=== PATIENT | male | born 1945 | race Caucasian/White ===

== ENCOUNTER 2018-10-20 01:26 | Inpatient (IN) | payer MEDICARE, BC ==
[~2018-10-20] VITALS: Ht 172.7 cm; Wt 49.0 kg
[2018-10-20] MEDS ORDERED: ARIP5TAB20 PO (01:35)
[2018-10-20] MEDS ORDERED: DULO30CA2 PO (01:35)
[2018-10-20] MEDS ORDERED: TAMS-3 PO (01:35)
[2018-10-20] MEDS ORDERED: BACI1CAP4 PO (01:36)
[2018-10-20] MEDS ORDERED: VIT1CAPS44 PO (01:36)
[2018-10-20] MEDS ORDERED: ASPI-1152 PO (01:37)
[2018-10-20] MEDS ORDERED: PRAV40TA PO (01:39)
[2018-10-20] MEDS ORDERED: CALC-168 PO (01:39)
[2018-10-20] MEDS ORDERED: VITA100C5 PO (01:40)
[2018-10-20] MEDS ORDERED: TEMA30CA PO (01:40)
--- NOTE | 2018-10-20 01:43 | NUR ---
Pt. admitted to MHU, under care of Dr. Li/Calista Rodriguez List completed
--- NOTE | 2018-10-20 01:46 | NUR ---
Pt. admitted to MHU , under care of Dr. Li/ Calista ACCOUNTING GENERALIST. Report given to Nikki VALLEJO Belongs List completed
[2018-10-20] MEDS ORDERED: MAGNESIUM HYDROXIDE 30 ML LIQUID UDC PO PRN (02:00)
[2018-10-20] MEDS ORDERED: MAG HYDROX/AL HYDROX/SIMETH 30 ML LIQUID UDC PO PRN (02:00)
--- NOTE | 2018-10-20 02:30 | NUR ---
78 y.o. male brought to MHU via gurney, accompanied by 2 hospital superintendent, Pt medically cleared at [facility]. Pt has a dx of Major Depression and is under the care of Dr Li and DOLORES Garner. Pt on a 5150 for DTS. According to the Hold, Pt took 12 tabs on Klonopin 0.5mg in a suicide attempt. Pt stated he is not remorseful and regrets he lived. Pt admits and agrees with a Pt given Patient Rights Handbook and Advisement. Upon face to face evaluation, Pt A+Ox2 to self and place, stated the date was September. Pt states she is here "because they said I was wandering into other people's rooms." Pt attempts to minimize circumstances regarding her admission, and initially denied going into other resident's room, but later admitted, "yes I did go into someone's room, but he's my friend I was checking on him." Then Pt stated, "I did it because I get bored." Pt is a poor historian, and denies ever being in a psychiatric facility and denies any mental health problem, stating "I'm not crazy. Do you think I'm crazy?" Per Pt's daughter Radha, Pt had had multiple psych hospitalizations and has a long history of bipolar d/o and schizophrenia. Pt is guarded with personal information and easily irritable. Pt is needy and demanding with snacks and reading material, angry when limits are set. Affect is elevated, speech is pressured, mood is depressed, anxious, and restless. t is attention-seeking and hyperverbal. Ativan 0.5mg administered with moderate effect. Circumstantial and tangential in thought process. Somewhat forgetful and disorganized, repeats the same questions frequently. Pt denies SI/HI, but stated, "I can't wait to be with my son" and became tearful. Verbally contracts for safety. Denies AH/VH. Appearance is disheveled and unkempt, shower given. Skin assessment completed, skin c/d/i with small bruises noted to (B) posterior hands. Dr Cisneros and Dr Tabor notified of admission, orders received, meds reconciled. Noted medical h/o dementia, bipolar d/o, schizophrenia, OCD, HTN, HLD, Parkinson's, glaucoma, arthritis, and hearing loss, NKA. Belongings inventoried and placed in Pt room. Cooperative with admission process, all paperwork signed. Pt's friend Kalani and daughter Radha notified of admission. BP elevated on admission, Dr Tabor notified, no new orders. All other VS stable, denies pain, in no apparent physical distress. Pt educated on unit rules and expectations and on restraint criteria/policy. Pt oriented to the unit, the phone, her room, and bathroom, verbalized understanding. Addendum: 10/20/18 at 0642 by IRAJ MERRITT RN Disregard previous note
--- NOTE | 2018-10-20 05:00 | NUR ---
See admission note in [facility] Admission Packet
[2018-10-20 05:56] VITALS: BP 151/97
[2018-10-20 07:30] VITALS: BP 132/79
--- NOTE | 2018-10-20 12:32 | NUR ---
Initial Discharge Instructions: Patient currently resides at home with his and son [[address], [place] [address]; [phone]]. Per pt, he would like to return home when ready for discharge. SW will speak with pt's , Vandana ([phone]). DAVID will continue to collaborate with pt, family, and MD regarding most appropriate discharge plans for this patient. SW will form a safe and proper discharge plan.
[2018-10-20 15:24] VITALS: BP 118/75
[2018-10-20] MEDS: VITAMIN E 400 UNITS CAPSULE PO SCH (16:39)
[2018-10-20] MEDS: BETA CAROTENE/VIT C & E/MIN TABLET PO SCH (16:52)
[2018-10-20] MEDS: ATORVASTATIN 10 MG TABLET PO SCH (20:04)
[2018-10-20] MEDS: CALCIUM CARB/VITAMIN D 500MG-200UNITS TABLET PO SCH (20:04)
[2018-10-20] MEDS: CULTURELLE CAPSULE PO SCH (20:04)
[2018-10-20 20:30] VITALS: BP 124/78
[2018-10-20] MEDS ORDERED: ATORVASTATIN 40 MG TABLET PO SCH (21:00)
[2018-10-20] MEDS: MIRTAZAPINE 15 MG TABLET PO SCH (22:41)
--- NOTE | 2018-10-21 04:58 | NUR ---
Received Pt in bed, A+Ox3, calm and pleasant on approach. Noted to be isolative, withdrawn, and seclusive to his room. Pt now denies SI, but appears unreliable due to blunted affect, self-imposed seclusion, and inability to sleep. Presents with thought blocking and is guarded in thought process. Pt encouraged to participate in the milieu and participate in group activities. Dr Li started on Remeron 15mg HS, Pt educated on indications and reportable s/e. Appears in no acute distress, VS stable, denies any acute pain, will continue to monitor.
[2018-10-21 07:30] VITALS: BP 126/85
[2018-10-21] MEDS: ASPIRIN EC 81 MG TABLET.DR PO SCH (08:31)
[2018-10-21] MEDS: CALCIUM CARB/VITAMIN D 500MG-200UNITS TABLET PO SCH ×2 (08:31→20:22)
[2018-10-21] MEDS: CULTURELLE CAPSULE PO SCH ×2 (08:31→20:22)
[2018-10-21] MEDS: BETA CAROTENE/VIT C & E/MIN TABLET PO SCH (08:31)
[2018-10-21] MEDS: TAMSULOSIN HCL 0.4 MG CAP.SR.24H PO SCH (08:31)
[2018-10-21] MEDS: VITAMIN E 400 UNITS CAPSULE PO SCH (08:32)
[2018-10-21 16:00] VITALS: BP 112/72
--- NOTE | 2018-10-21 19:45 | NUR ---
RECEIVED PATIENT IN HIS ROOM IN BED, HE IS NOTED AWAKE A/O X 2. HE IS ABLE TO AMBULATE WITH STEADY GAIT AND ABLE TO MAKE HIS NEEDS KNOWN. PATIENT NOTED WITHDRAWN, ISOLATIVE, SAD FACIAL EXPRESSION; HOWEVER, UPON INTERVIEW, HE DENIED SI, DENIES ANY THOUGHTS OF HARMING SELF. HE STATED, "I KNOW I TOOK BUNCH OF PILLS BUT NOW I FEEL THAT I HAVE HOPE. I FEEL BETTER AND BETTER AND MY DEPRESSION IS BETTER." PATIENT IS ABLE TO CFS. HE WAS REASSURED FOR HIS SAFETY. WILL CONTINUE TO MONITOR.
[2018-10-21 19:57] VITALS: BP 138/83
[2018-10-21] MEDS: MIRTAZAPINE 15 MG TABLET PO SCH (20:20)
[2018-10-21] MEDS: ATORVASTATIN 10 MG TABLET PO SCH (20:20)
[2018-10-22 08:00] VITALS: BP 110/68
[2018-10-22] MEDS: CALCIUM CARB/VITAMIN D 500MG-200UNITS TABLET PO SCH ×2 (08:33→20:04)
[2018-10-22] MEDS: CULTURELLE CAPSULE PO SCH ×2 (08:33→20:03)
[2018-10-22] MEDS: ASPIRIN EC 81 MG TABLET.DR PO SCH (08:33)
[2018-10-22] MEDS: VITAMIN E 400 UNITS CAPSULE PO SCH (08:33)
[2018-10-22] MEDS: TAMSULOSIN HCL 0.4 MG CAP.SR.24H PO SCH (08:33)
[2018-10-22] MEDS: BETA CAROTENE/VIT C & E/MIN TABLET PO SCH (08:34)
[2018-10-22 16:42] VITALS: BP 147/90
[2018-10-22] MEDS: ATORVASTATIN 10 MG TABLET PO SCH (20:03)
[2018-10-22] MEDS: MIRTAZAPINE 15 MG TABLET PO SCH (20:03)
[2018-10-22 20:18] VITALS: BP 119/65
[2018-10-23] MEDS ORDERED: LORAZEPAM 1 MG TABLET PO PRN (01:15)
[2018-10-23 07:30] VITALS: BP 139/87
[2018-10-23] MEDS: TAMSULOSIN HCL 0.4 MG CAP.SR.24H PO SCH (08:15)
[2018-10-23] MEDS: CULTURELLE CAPSULE PO SCH ×2 (08:15→20:51)
[2018-10-23] MEDS: VITAMIN E 400 UNITS CAPSULE PO SCH (08:15)
[2018-10-23] MEDS: ASPIRIN EC 81 MG TABLET.DR PO SCH (08:15)
[2018-10-23] MEDS: CALCIUM CARB/VITAMIN D 500MG-200UNITS TABLET PO SCH ×2 (08:15→20:51)
[2018-10-23] MEDS: BETA CAROTENE/VIT C & E/MIN TABLET PO SCH (08:15)
--- NOTE | 2018-10-23 11:28 | NUR ---
Firearms Report: SW completed and submitted [employer] Firearms Report for 5150 DTS certification.
[2018-10-23 15:36] VITALS: BP 122/76
[2018-10-23 20:23] VITALS: BP 125/88
[2018-10-23] MEDS: MIRTAZAPINE 15 MG TABLET PO SCH (20:51)
[2018-10-23] MEDS: ATORVASTATIN 10 MG TABLET PO SCH (20:51)
[2018-10-23] MEDS: TEMAZEPAM 7.5 MG CAPSULE PO PRN (21:51)
[2018-10-24 07:30] VITALS: BP 126/83
[2018-10-24] MEDS: ASPIRIN EC 81 MG TABLET.DR PO SCH (09:38)
[2018-10-24] MEDS: CALCIUM CARB/VITAMIN D 500MG-200UNITS TABLET PO SCH ×2 (09:38→20:54)
[2018-10-24] MEDS: TAMSULOSIN HCL 0.4 MG CAP.SR.24H PO SCH (09:38)
[2018-10-24] MEDS: VITAMIN E 400 UNITS CAPSULE PO SCH (09:38)
[2018-10-24] MEDS: BETA CAROTENE/VIT C & E/MIN TABLET PO SCH (09:38)
[2018-10-24] MEDS: CULTURELLE CAPSULE PO SCH ×2 (09:38→21:00)
--- NOTE | 2018-10-24 14:39 | NUR ---
Vegetable Vendor Discharge Planning: SW called and spoke to pt's , Vandana ([phone]) to discuss pt's prognosis and discharge planning. SW provided opportunity for pt's to express concerns and ventilate feelings. Pt's expressed concern about patient returning home upon discharge, as she has medical issues of her own from which she is recovering. SW explored options of pt returning home w/Home Health and caregiver vs SNF placement. Pt's reported that she would rather have patient placed in a SNF at this time to ensure safety for both the patient and herself. Pt's was agreeable with local SNF placement. Pt's reported that she has DPOA and will bring it with her tonight when she visits the patient. SW will begin SNF placement process and will continue to collaborate with treatment team to ensure a safe and proper discharge for the patient.
[2018-10-24 16:24] VITALS: BP 122/80
[2018-10-24 20:00] VITALS: BP 144/82
[2018-10-24] MEDS: CLONAZEPAM 0.5 MG TABLET PO SCH (20:53)
[2018-10-24] MEDS: ATORVASTATIN 10 MG TABLET PO SCH (20:54)
[2018-10-24] MEDS: MIRTAZAPINE 15 MG TABLET PO SCH (21:01)
[2018-10-24] MEDS: TEMAZEPAM 7.5 MG CAPSULE PO PRN (22:19)
[2018-10-25 07:30] VITALS: BP 113/78
[2018-10-25] MEDS: VITAMIN E 400 UNITS CAPSULE PO SCH (08:28)
[2018-10-25] MEDS: CULTURELLE CAPSULE PO SCH ×2 (08:28→20:06)
[2018-10-25] MEDS: CALCIUM CARB/VITAMIN D 500MG-200UNITS TABLET PO SCH ×2 (08:28→20:06)
[2018-10-25] MEDS: TAMSULOSIN HCL 0.4 MG CAP.SR.24H PO SCH (08:29)
[2018-10-25] MEDS: ASPIRIN EC 81 MG TABLET.DR PO SCH (08:29)
[2018-10-25] MEDS: BETA CAROTENE/VIT C & E/MIN TABLET PO SCH (08:29)
[2018-10-25] MEDS: CLONAZEPAM 0.5 MG TABLET PO SCH ×2 (08:31→20:06)
--- NOTE | 2018-10-25 13:06 | NUR ---
Patient fmily member, Amanda Beck, would like to be the poitn of contact while the other family members will be out of town. Sanjuana number is ([phone]). Amanda can be contacted if there is anything needed or any changes to the plan for Mr. Beck.
[2018-10-25] MEDS: ACETAMINOPHEN 325 MG TABLET PO PRN (14:24)
--- NOTE | 2018-10-25 15:43 | NUR ---
PROCESS GROUP NOTE: Patients were asked to discuss their thoughts on what knowledge or "life lessons" they would pass on to a younger generation. Subjective: "..." Objective: harness worker arrived at patient bedside to invite patient to group. Patient was asleep and unable to be woken up. Assessment: Patient appeared to be sleeping calmly. harness worker did not disturb. Plan: harness worker will continue to encourage group attendance as scheduled. harness worker will continue to provide encouragement and support during MHU admission
[2018-10-25 16:00] VITALS: BP 135/72
--- NOTE | 2018-10-25 18:12 | NUR ---
spent majority of the day in his bed in his room. Patient is compliant with medical care and treatment. patient denies any suicidal ideation. Patient denies hallucination auditory and visual. Patient is able to verbalize needs and needs have been met. Patient consumed most of his meals today. Patient tends to keep to himself during the evening activities room. patient prefers to eat in the room alone. Will continue to monitor the patient closely and will endorse plan of care to overnight caregiver.
[2018-10-25 19:56] VITALS: BP 135/72
[2018-10-25] MEDS: MIRTAZAPINE 15 MG TABLET PO SCH (20:06)
[2018-10-25] MEDS: ATORVASTATIN 10 MG TABLET PO SCH (20:06)
[2018-10-25] MEDS: TEMAZEPAM 7.5 MG CAPSULE PO PRN (21:39)
[2018-10-26 07:30] VITALS: BP 108/75
[2018-10-26] MEDS: CLONAZEPAM 0.5 MG TABLET PO SCH ×2 (08:37→21:13)
[2018-10-26] MEDS: ASPIRIN EC 81 MG TABLET.DR PO SCH (08:37)
[2018-10-26] MEDS: TAMSULOSIN HCL 0.4 MG CAP.SR.24H PO SCH (08:37)
[2018-10-26] MEDS: BETA CAROTENE/VIT C & E/MIN TABLET PO SCH (08:38)
[2018-10-26] MEDS: VITAMIN E 400 UNITS CAPSULE PO SCH (08:38)
[2018-10-26] MEDS: CALCIUM CARB/VITAMIN D 500MG-200UNITS TABLET PO SCH ×2 (08:38→21:15)
[2018-10-26] MEDS: CULTURELLE CAPSULE PO SCH ×2 (08:38→21:14)
[2018-10-26 16:00] VITALS: BP 134/79
[2018-10-26] MEDS: MIRTAZAPINE 15 MG TABLET PO SCH (21:15)
[2018-10-26 21:18] VITALS: BP 146/86
[2018-10-26] MEDS: ATORVASTATIN 10 MG TABLET PO SCH (21:20)
[2018-10-26] MEDS: ACETAMINOPHEN 325 MG TABLET PO PRN (21:34)
--- NOTE | 2018-10-26 22:26 | NUR ---
A/O X 3 to self, calm and pleasant upon approach, denies SI/HI/AH/VH, reports feeling better but still depressed, withdrawn, isolative to self in room. Interacts with staff, medication compliant, prn for low grade fever administered with effective outcome no aggressive or violent behaviors noted. Emphasized safety, encouraged pt to call for assistance whenever needed to prevent any injuries while in the hospital.
[2018-10-26] MEDS: TEMAZEPAM 7.5 MG CAPSULE PO PRN (22:36)
[2018-10-27 07:30] VITALS: BP 123/84
[2018-10-27] MEDS: ASPIRIN EC 81 MG TABLET.DR PO SCH (08:35)
[2018-10-27] MEDS: CLONAZEPAM 0.5 MG TABLET PO SCH ×2 (08:35→20:08)
[2018-10-27] MEDS: TAMSULOSIN HCL 0.4 MG CAP.SR.24H PO SCH (08:35)
[2018-10-27] MEDS: BETA CAROTENE/VIT C & E/MIN TABLET PO SCH (08:36)
[2018-10-27] MEDS: CALCIUM CARB/VITAMIN D 500MG-200UNITS TABLET PO SCH ×2 (08:37→20:08)
[2018-10-27] MEDS: CULTURELLE CAPSULE PO SCH ×2 (08:37→20:05)
[2018-10-27] MEDS: VITAMIN E 400 UNITS CAPSULE PO SCH (08:51)
--- NOTE | 2018-10-27 11:24 | NUR ---
Job Press Feeder Discharge Planning: DAVID consulted with Dr. Li about SNF placement, and Dr. Li recommended SNF inquiry be sent to [facility] [[address], [place] [address]; [phone]; Attn: Georgina]. DAVID faxed inquiry and is awaiting response from the facility. DAVID will continue to follow-up.
[2018-10-27 16:00] VITALS: BP 132/84
--- NOTE | 2018-10-27 20:00 | NUR ---
RECEIVED PATIENT IN HIS ROOM IN BED. HE IS NOTED AWAKE A/O X 3. ABLE TO AMBULATE WITH STEADY GAIT AND ABLE TO MAKE HIS NEEDS KNOWN. PATIENT NOTED WITH LOW MOOD, WITHDRAWN, ISOLATIVE, BLUNTED AFFECT, FAIR INSIGHT AND JUDGMENT. UPON INTERVIEW PATIENT STATED, "I WANT TO TALK TO DR HADDAD BECAUSE I AM STILL FEELING DEPRESSED, I WANT HIM TO INCREASED MY MEDICATION". PATIENT WAS REASSURED THAT DR HADDAD WILL BE NOTIFY OF PATIENT'S FEELING. PATIENT IS ABLE TO CFS. ENCOURAGE TO VERBALIZED FEELINGS. HE WAS REASSURED FOR HIS SAFETY. WILL CONTINUE TO MONITOR.
[2018-10-27] MEDS: MIRTAZAPINE 15 MG TABLET PO SCH (20:05)
[2018-10-27] MEDS: ATORVASTATIN 10 MG TABLET PO SCH (20:05)
[2018-10-27] MEDS ORDERED: MIRTAZAPINE 15 MG TABLET PO ONE (21:45)
[2018-10-27] MEDS: TEMAZEPAM 7.5 MG CAPSULE PO PRN (22:48)
[2018-10-28 08:00] VITALS: BP 131/82
[2018-10-28] MEDS: CLONAZEPAM 0.5 MG TABLET PO SCH ×2 (08:36→20:29)
[2018-10-28] MEDS: ASPIRIN EC 81 MG TABLET.DR PO SCH (08:38)
[2018-10-28] MEDS: TAMSULOSIN HCL 0.4 MG CAP.SR.24H PO SCH (08:38)
[2018-10-28] MEDS: CULTURELLE CAPSULE PO SCH ×2 (08:39→20:29)
[2018-10-28] MEDS: CALCIUM CARB/VITAMIN D 500MG-200UNITS TABLET PO SCH ×2 (08:39→20:29)
[2018-10-28] MEDS: BETA CAROTENE/VIT C & E/MIN TABLET PO SCH (08:40)
[2018-10-28] MEDS: VITAMIN E 400 UNITS CAPSULE PO SCH (08:40)
[2018-10-28 16:42] VITALS: BP 123/84
--- NOTE | 2018-10-28 19:40 | NUR ---
RECEIVED PATIENT IN HIS ROOM IN BED. HE IS NOTED AWAKE A/O X 3. ABLE TO AMBULATE WITH STEADY GAIT AND ABLE TO MAKE HIS NEEDS KNOWN. PATIENT STATED THAT HE IS "FEELINGS LESS DEPRESSED"; HOWEVER, HE CONTINUE WITHDRAWN, ISOLATIVE. HE DENIES SI/HI. DENIES AH/VH, HE IS ABLE TO CFS. ABLE TO VERBALIZED FEELINGS. HE WAS REASSURED FOR HIS SAFETY. WILL CONTINUE TO MONITOR.
[2018-10-28] MEDS: ATORVASTATIN 10 MG TABLET PO SCH (20:28)
[2018-10-28] MEDS: MIRTAZAPINE 15 MG TABLET PO SCH (20:29)
[2018-10-28 21:19] VITALS: BP 132/81
[2018-10-28] MEDS: TEMAZEPAM 7.5 MG CAPSULE PO PRN (22:47)
--- NOTE | 2018-10-29 07:30 | NUR ---
patient slept for approx 2 hrs through the night. will continue to monitor.
[2018-10-29 08:36] VITALS: BP 135/85
[2018-10-29] MEDS: TAMSULOSIN HCL 0.4 MG CAP.SR.24H PO SCH (08:50)
[2018-10-29] MEDS: ASPIRIN EC 81 MG TABLET.DR PO SCH (08:50)
[2018-10-29] MEDS: VITAMIN E 400 UNITS CAPSULE PO SCH (08:50)
[2018-10-29] MEDS: CLONAZEPAM 0.5 MG TABLET PO SCH ×2 (08:50→20:02)
[2018-10-29] MEDS: BETA CAROTENE/VIT C & E/MIN TABLET PO SCH (08:50)
[2018-10-29] MEDS: CULTURELLE CAPSULE PO SCH ×2 (08:51→20:02)
[2018-10-29] MEDS: CALCIUM CARB/VITAMIN D 500MG-200UNITS TABLET PO SCH ×2 (08:51→20:01)
--- NOTE | 2018-10-29 10:40 | NUR ---
Gps/Marketing Proposal Coordinator- Patient verbalized he's feelings better, but noted patient remains isolative/withdrawn, encouraged eating meals in the dinning room, continue to be compliant with his routine medications, no interactions noted with his roommate, encouraged to verbalized feelings , denies S.I. Patient verbalized he is worried about his medications when he goes back to [facility], reassured it will all be taken care of prior dc.
[2018-10-29 16:00] VITALS: BP 126/74
[2018-10-29 20:01] VITALS: BP 139/78
[2018-10-29] MEDS: ATORVASTATIN 10 MG TABLET PO SCH (20:02)
[2018-10-29] MEDS: MIRTAZAPINE 15 MG TABLET PO SCH (20:02)
[2018-10-29] MEDS: TEMAZEPAM 7.5 MG CAPSULE PO PRN (22:27)
--- NOTE | 2018-10-30 06:08 | NUR ---
GPS: Remain calm and cooperative with medications and care. Denies SI, patient is isolative to self in room. Interacts with staff, no aggressive or violent behaviors noted. Emphasized safety, encouraged pt to call for assistance whenever needed to prevent any injuries while in the hospital. slept 6 hrs through the night after given Restoril 7.5 mg po for sleep. continue plan of care.
[2018-10-30 07:30] VITALS: BP 121/91
[2018-10-30] MEDS: CLONAZEPAM 0.5 MG TABLET PO SCH ×2 (08:22→20:48)
[2018-10-30] MEDS: VITAMIN E 400 UNITS CAPSULE PO SCH (08:22)
[2018-10-30] MEDS: ASPIRIN EC 81 MG TABLET.DR PO SCH (08:22)
[2018-10-30] MEDS: BETA CAROTENE/VIT C & E/MIN TABLET PO SCH (08:23)
[2018-10-30] MEDS: CALCIUM CARB/VITAMIN D 500MG-200UNITS TABLET PO SCH ×2 (08:24→20:48)
[2018-10-30] MEDS: CULTURELLE CAPSULE PO SCH ×2 (08:24→20:48)
[2018-10-30] MEDS: TAMSULOSIN HCL 0.4 MG CAP.SR.24H PO SCH (08:38)
--- NOTE | 2018-10-30 08:59 | NUR ---
Sunglass Clip Attacher Discharge Planning: SW called and spoke to Georgina, Ton Container Filler at [facility], ([phone]) to inquire about patient's acceptance to their facility. Per Georgina, the patient has been accepted. This ghost writer informed Georgina that the patient will be discharging soon, and will follow-up when it is time. SW will continue to follow-up to ensure safe discharge.
[2018-10-30 15:10] VITALS: BP 114/63
--- NOTE | 2018-10-30 17:33 | NUR ---
GPS Nursing : received patient alert oriented x 3, on bed, verbally responsive, patient denies any pain , no suicidal ideation ,ambulatory self care, compliant to medication, patient verbalizes that his ready to go home but his just got out her surgery and my not be able to take of him , so his waiting for the social service to find a placement for him, patient participated with the group therapy, and been pleasant the whole day , will continue to monitor for SI
[2018-10-30] MEDS: MIRTAZAPINE 15 MG TABLET PO SCH (20:48)
[2018-10-30] MEDS: ATORVASTATIN 10 MG TABLET PO SCH (20:48)
[2018-10-30] MEDS: TEMAZEPAM 7.5 MG CAPSULE PO PRN (22:06)
--- NOTE | 2018-10-30 22:06 | NUR ---
patient c/o insomnia. restoril 7.5 mg po given.
[2018-10-30 22:18] VITALS: BP 123/80
--- NOTE | 2018-10-30 23:06 | NUR ---
patient sleeping now. prn effective for sleep.
--- NOTE | 2018-10-31 05:51 | NUR ---
GPS: Remain calm and cooperative with medications and care. Denies SI, patient is isolative to self in room. Interacts with staff, no aggressive or violent behaviors noted. Emphasized safety, encouraged pt to call for assistance whenever needed to prevent any injuries while in the hospital. slept 8.5 hrs through the night after given Restoril 7.5 mg po for sleep.
[2018-10-31 07:59] VITALS: BP 132/81
[2018-10-31] MEDS: CLONAZEPAM 0.5 MG TABLET PO SCH (08:31)
[2018-10-31] MEDS: TAMSULOSIN HCL 0.4 MG CAP.SR.24H PO SCH (08:31)
[2018-10-31] MEDS: CALCIUM CARB/VITAMIN D 500MG-200UNITS TABLET PO SCH (08:32)
[2018-10-31] MEDS: CULTURELLE CAPSULE PO SCH (08:32)
[2018-10-31] MEDS: ASPIRIN EC 81 MG TABLET.DR PO SCH (08:32)
[2018-10-31] MEDS: VITAMIN E 400 UNITS CAPSULE PO SCH (08:32)
[2018-10-31] MEDS: BETA CAROTENE/VIT C & E/MIN TABLET PO SCH (08:32)
--- NOTE | 2018-10-31 09:39 | NUR ---
Discharge Note: Patient will be discharged to [facility] [[facility] [place] [address]; [phone]] via ambulance at 1pm. Please arrange an ambulance for this patient. Spoke with Georgina at the facility who states they are ready to accept the patient today. Spoke with patients , Vandana Beck ([phone]) who is aware and agreeable with discharge plans. Patient is alert and oriented x4, denies SI, and is agreeable with discharge plans. Patient will follow-up at the facility with Dr. Carr (Corporate Lawyer) and Dr. Li (Psychiatrist). Patient was provided with outpatient mental health referrals to [facility] , [facility] , and the National Suicide Prevention [employer] .
--- NOTE | 2018-10-31 12:49 | NUR ---
1100 Called [facility], [facility] spoke with GENEVIEVE Stroud report given regarding patient will be discharged today to their facility. RN informed regarding patient mental and medical status, stable. Patient denies SI/HI. No delusion. N o a/v hallucination noted. Also, RN notified medications to continue upon discharged. 1110 Discharged instructions given to patient, verbalized understanding and signed. Patient will be picked up at 1330 via ambulance.
--- NOTE | 2018-10-31 13:37 | NUR ---
1330 Patient discharged to [facility] via ambulance, alert and ox3, denies SI/HI no delusion. No hllucinaton noted.
== END 2018-10-31 13:30 | DRG 885 ==
LOC: ER 01:28 → GPS 01:43
PROVIDERS: ADMIT Psychiatry & Neurology Psychiatry; ATTEND Nurse Practitioner Acute Care
DX: F33.9 Major depressive disorder, recurrent, unspecified (principal); E43 Unspecified severe protein-calorie malnutrition; Z68.1 Body mass index [BMI] 19.9 or less, adult; T42.4X2D Poisoning by benzodiazepines, intentional self-harm, subsequent encounter; Z91.5 Personal history of self-harm; E78.5 Hyperlipidemia, unspecified; F41.9 Anxiety disorder, unspecified; I10 Essential (primary) hypertension; Z79.82 Long term (current) use of aspirin; Z79.899 Other long term (current) drug therapy
CPT/HCPCS: 36415; A4663